=== PATIENT | male | born 1930 | race Caucasian/White ===

== ENCOUNTER 2017-08-20 15:40 | Inpatient (IN) | payer MEDICARE, MEDICAID ==
[~2017-08-20] VITALS: Ht 177.8 cm; Wt 83.9 kg
[2017-08-20 17:49] LABS: Hematocrit 26.5 % (41.0-53.0); Mean Corpuscular Hemoglobin 27.8 pg (28.0-32.0); Mean Corpuscular Hgb Conc. 30.1 g/dL (32.0-36.0); Mean Corpuscular Volume 92.4 fL (80.0-100.0); Mean Platelet Volume 9.3 fL (6.9-10.8); Platelet Count (auto) 272 10^3/uL (140-450); Red Cell Distribution Width 17.2 % (11.8-14.3)
[2017-08-20 17:53] LABS: Albumin 2.3 g/dL (3.4-5.0); BUN/Creatinine Ratio 26.7; Bilirubin, Total 0.8 mg/dL (0.2-1.0); Potassium 3.4 mmol/L (3.5-5.1); Total Protein 7.4 g/dL (6.4-8.2)
[2017-08-20 18:13] LABS: INR 1.05 (0.9-1.15); Partial Thromboplastin Time 43.5 sec (22.64-33.71); Prothrombin Time 11.4 sec (9.37-12.3)
[2017-08-20 18:20] LABS: Metamyelocytes % 0; Myelocytes % 0; Promyelocytes % 0; Reactive Lymphocytes 0
[2017-08-20 18:55] LABS: Hypersegmented Neutrophils Present
[2017-08-20 18:56] LABS: Platelet Estimate Adequate
[2017-08-20 18:57] LABS: Burr Cells FEW
[2017-08-20 18:58] LABS: Ovalocytes FEW
[2017-08-20 18:59] LABS: Tear Drop Cells FEW
[2017-08-20 19:00] LABS: Giant Platelets Few
[2017-08-20] MEDS ORDERED: ALBUTEROL SULF 2.5 MG/0.5ML(0.5%) NEB SOLN HHN ONE (19:00)
[2017-08-20] MEDS ORDERED: IPRATROPIUM BROM 0.5 MG/2.5ML INH SOL HHN ONE (19:00)
[2017-08-20] MEDS ORDERED: methylPREDNISolone SOD SUCC 125 MG/2 ML VL IV ONE (19:00)
[2017-08-20 21:08] LABS: Allen Test Yes; Base Excess -11.7 mmol/L (-2.0-2.0); Blood MetHb 0.3 % (0.0-1.5); HCO3 12.2 mmol/L (22-26.0); MODE NASAL CANNULA; O2Hb 86.7 % (94.0-97.0); PCO2 22.1 mmHg (35.0-45.0); PCO2(T) 22.1 mmHg (35.0-45.0); PO2 57.3 mmHg (80.0-100.0); PO2(T) 57.3 mmHg (80.0-100.0); Sample Type Arterial; pH 7.361 (7.350-7.450)
[2017-08-20] MEDS ORDERED: SODIUM CHLORIDE 0.9% 500 ML IV ONE (21:30)
[2017-08-21] VITALS (10 sets, daily range): BP systolic 102–116; BP diastolic 60–92
[2017-08-21] MEDS ORDERED: MORPHINE SULF INJ 2 MG/ML SYRINGE 1ML IV PRN (00:15)
[2017-08-21] MEDS ORDERED: NITROGLYCERIN 0.4 MG SL TAB SL PRN (00:15)
[2017-08-21] MEDS ORDERED: POTASSIUM CHL 10% (20 MEQ/15ML) 15ml ORAL SOLN PO ONE (00:30)
[2017-08-21] MEDS ORDERED: ONDANSETRON HCL 4 MG/2 ML VIAL IV PRN (00:45)
[2017-08-21 02:12] LABS: Urine Bilirubin Negative (Negative); Urine Blood 2+ /uL (Negative); Urine Color Yellow (Yellow); Urine Glucose Normal (Normal); Urine Hyaline Cast FEW /lpf (0 - 2); Urine Ketone Negative (Negative); Urine Nitrite Negative (Negative); Urine RBC 189 /hpf (0 - 3); Urine Squamous Epithelial Cell FEW /hpf (<5); Urine Urobilinogen Normal (Negative); Urine WBC Clumps PRESENT /hpf (None Seen); Urine pH 5.5 (5.0-8.0)
[2017-08-21] MEDS: cefTRIAXone 1GM/10ml IVPUSH 10 ML IV SCH (05:15)
[2017-08-21 05:41] LABS: Hemoglobin 7.4 g/dL (13.5-17.5); Mean Platelet Volume 9.3 fL (6.9-10.8); Red Cell Distribution Width 17.1 % (11.8-14.3)
[2017-08-21 05:45] LABS: Mean Corpuscular Hemoglobin 28.1 pg (28.0-32.0); Mean Corpuscular Hgb Conc. 29.7 g/dL (32.0-36.0); Mean Corpuscular Volume 94.5 fL (80.0-100.0); Platelet Count (auto) 246 10^3/uL (140-450)
[2017-08-21 05:52] LABS: White Blood Cell 277.3 10^3/uL (4.4-10.8)
[2017-08-21 05:53] LABS: Metamyelocytes % 0; Myelocytes % 0; Promyelocytes % 0; Reactive Lymphocytes 0
[2017-08-21 06:05] LABS: Calcium 7.9 mg/dL (8.5-10.1); Potassium 4.1 mmol/L (3.5-5.1)
[2017-08-21 06:08] LABS: Bilirubin, Total 0.6 mg/dL (0.2-1.0); Total Protein 6.7 g/dL (6.4-8.2)
[2017-08-21 06:10] LABS: B-Type Natriuretic Peptide 52.33 pg/mL (0-100)
[2017-08-21 06:21] LABS: Temperature: 22.2 C (20.0-25.0)
[2017-08-21 08:58] LABS: Temperature: 22.8 C (20.0-25.0)
[2017-08-21 13:32] LABS: Platelet Estimate Adequate
[2017-08-21 13:34] LABS: Burr Cells FEW
[2017-08-21 13:37] LABS: Ovalocytes FEW
[2017-08-21 13:38] LABS: Tear Drop Cells FEW
[2017-08-21] MEDS ORDERED: ALLOPURINOL 100 MG TAB PO ONE (14:00)
[2017-08-21] MEDS: SODIUM BICARBONATE 50ML VIAL 50 ML in D5W/SOD CHL 0.45%/KCL 20MEQ 1,000 ML IV SCH ×2 (17:05→20:36)
[2017-08-21] MEDS: LEVOTHYROXINE SODIUM 25 MCG TAB PO SCH (17:05)
[2017-08-22] MEDS: SODIUM BICARBONATE 50ML VIAL 50 ML in D5W/SOD CHL 0.45%/KCL 20MEQ 1,000 ML IV SCH ×3 (04:47→23:00)
[2017-08-22] MEDS: cefTRIAXone 1GM/10ml IVPUSH 10 ML IV SCH (04:59)
[2017-08-22] MEDS: LEVOTHYROXINE SODIUM 25 MCG TAB PO SCH (05:00)
[2017-08-22 05:14] VITALS: BP 104/63
[2017-08-22 06:31] LABS: Phosphorus 5.9 mg/dL (2.5-4.90); Uric Acid 7.8 mg/dL (3.5-7.2)
[2017-08-22 06:56] LABS: Calcium 8.1 mg/dL (8.5-10.1); Potassium 3.5 mmol/L (3.5-5.1)
[2017-08-22 06:59] LABS: BUN/Creatinine Ratio 32.7; Total Protein 6.7 g/dL (6.4-8.2)
[2017-08-22 07:06] LABS: Bilirubin, Total 0.5 mg/dL (0.2-1.0)
[2017-08-22 08:46] LABS: Hematocrit 28.9 % (41.0-53.0); Hemoglobin 8.4 g/dL (13.5-17.5); Mean Corpuscular Hemoglobin 27.1 pg (28.0-32.0); Mean Corpuscular Volume 93.4 fL (80.0-100.0); Mean Platelet Volume 9.4 fL (6.9-10.8); Platelet Count (auto) 272 10^3/uL (140-450); Red Cell Distribution Width 17.1 % (11.8-14.3)
[2017-08-22 08:48] LABS: Metamyelocytes % 0; Myelocytes % 0; Promyelocytes % 0; Reactive Lymphocytes 0; White Blood Cell 298.6 10^3/uL (4.4-10.8)
[2017-08-22 09:00] VITALS: BP 105/57
[2017-08-22 09:36] LABS: Anisocytosis Slight; Platelet Estimate Adequate
[2017-08-22 09:37] LABS: Burr Cells FEW
[2017-08-22] MEDS ORDERED: IMBRUVICA 140 MG PO SCH ×2 (10:00)
[2017-08-22] MEDS: ALLOPURINOL 100 MG TAB PO SCH (10:22)
[2017-08-22] MEDS: LINEZOLID 600MG/300ML 300 ML IV SCH ×2 (10:22→22:02)
[2017-08-22] MEDS: CALCIUM ACETATE 667 MG CAP PO SCH ×2 (12:46→17:28)
[2017-08-22] MEDS: PIPERACILLIN-TAZOB 2.25GM 50 ML IV SCH ×2 (12:46→17:28)
[2017-08-22 13:00] VITALS: BP 114/55
[2017-08-22] MEDS: methylPREDNISolone SOD SUCC 125 MG/2 ML VL IV SCH ×2 (14:19→22:02)
[2017-08-22] MEDS: IBRUTINIB 140 MG PO SCH (16:36)
[2017-08-22 17:00] VITALS: BP 107/62
[2017-08-22 22:00] VITALS: BP 123/75
[2017-08-23] MEDS ORDERED: FERROUS SULFATE 325 MG TAB PO ONE (01:30)
[2017-08-23] MEDS ORDERED: DOCUSATE SOD 100 MG CAP PO PRN (01:30)
[2017-08-23] MEDS ORDERED: B-COTAB10 OR (02:01)
[2017-08-23] MEDS ORDERED: LEVO175T33 PO (02:01)
[2017-08-23] MEDS ORDERED: DOCU-94 PO (02:01)
[2017-08-23] MEDS ORDERED: CALC500C3 PO (02:01)
[2017-08-23] MEDS ORDERED: LOSA100T27 PO (02:01)
[2017-08-23] MEDS ORDERED: LABE100T PO (02:01)
[2017-08-23] MEDS ORDERED: PANT40TA2 PO (02:01)
[2017-08-23] MEDS ORDERED: SIMV10TA73 PO (02:01)
[2017-08-23] MEDS ORDERED: ALLO100T PO (02:01)
[2017-08-23] MEDS ORDERED: FURO20TA PO (02:01)
[2017-08-23] MEDS ORDERED: FOLI1TAB6 PO (02:01)
[2017-08-23] MEDS ORDERED: CYA100I IM (02:01)
[2017-08-23] MEDS ORDERED: GLIP2.5T28 PO (02:01)
[2017-08-23] MEDS ORDERED: FERR325T PO (02:01)
[2017-08-23 05:43] LABS: Hemoglobin 8.9 g/dL (13.5-17.5)
[2017-08-23 05:48] LABS: Hematocrit 27.9 % (41.0-53.0); Mean Corpuscular Hemoglobin 29.3 pg (28.0-32.0); Mean Corpuscular Volume 91.5 fL (80.0-100.0); Mean Platelet Volume 9.2 fL (6.9-10.8); Platelet Count (auto) 272 10^3/uL (140-450); Red Cell Distribution Width 16.6 % (11.8-14.3)
[2017-08-23 06:00] VITALS: BP 107/69
[2017-08-23 06:04] LABS: Metamyelocytes % 0; Myelocytes % 0; Promyelocytes % 0; Reactive Lymphocytes 0
[2017-08-23 06:07] LABS: Albumin 1.9 g/dL (3.4-5.0); Potassium 3.8 mmol/L (3.5-5.1)
[2017-08-23] MEDS: LEVOTHYROXINE SODIUM 50 MCG TAB PO SCH (06:09)
[2017-08-23] MEDS: methylPREDNISolone SOD SUCC 125 MG/2 ML VL IV SCH ×3 (06:09→21:29)
[2017-08-23] MEDS: PIPERACILLIN-TAZOB 2.25GM 50 ML IV SCH ×5 (06:09→23:36)
[2017-08-23 06:12] LABS: BUN/Creatinine Ratio 34.7; Bilirubin, Total 0.4 mg/dL (0.2-1.0); Total Protein 6.8 g/dL (6.4-8.2)
[2017-08-23 06:14] LABS: Uric Acid 6.9 mg/dL (3.5-7.2)
[2017-08-23 06:41] LABS: Platelet Estimate Adequate
[2017-08-23 06:42] LABS: Anisocytosis Slight; Tear Drop Cells FEW
[2017-08-23 09:00] VITALS: BP 112/65
[2017-08-23] MEDS: PANTOPRAZOLE 40 MG TAB PO SCH (09:45)
[2017-08-23] MEDS: IBRUTINIB 140 MG PO SCH (09:45)
[2017-08-23] MEDS: LINEZOLID 600MG/300ML 300 ML IV SCH ×2 (09:45→21:29)
[2017-08-23] MEDS: ALLOPURINOL 100 MG TAB PO SCH (09:45)
[2017-08-23] MEDS: SODIUM BICARBONATE 50ML VIAL 50 ML in D5W/SOD CHL 0.45%/KCL 20MEQ 1,000 ML IV SCH ×2 (09:53→16:32)
[2017-08-23] MEDS ORDERED: CALCIUM CARB 500 MG CHEW TAB PO SCH (10:00)
[2017-08-23] MEDS ORDERED: FOLIC ACID 1 MG TAB PO SCH (10:00)
[2017-08-23] MEDS ORDERED: ALLOPURINOL 100 MG TAB PO SCH (10:00)
[2017-08-23] MEDS ORDERED: CYANOCOBALAMIN 500 MCG TAB PO SCH (10:00)
[2017-08-23] MEDS ORDERED: B-COMPLEX W/ C & FOLIC ACID(NEPHROVITE TAB) PO SCH (10:00)
[2017-08-23] MEDS ORDERED: DEXTROSE (50%) 50ML SYRG IV PRN (11:00)
[2017-08-23] MEDS ORDERED: glipiZIDE 5 MG TAB PO ONE (11:30)
[2017-08-23] MEDS: ACCU-CHEK COMFORT CURVE STRIP VI SCH ×3 (11:30→21:29)
[2017-08-23] MEDS: guaiFENesin-DEXTROMETHORPHAN 5ML SYR PO PRN ×2 (12:07→16:04)
[2017-08-23] MEDS: InsuLIN REG 1unit/0.01ml Soln (100units/ml) SC SCH ×3 (12:24→21:36)
[2017-08-23 13:00] VITALS: BP 108/73
[2017-08-23 17:00] VITALS: BP 105/61
[2017-08-23] MEDS: Boost Glucose Control 8 Ounces PO SCH (18:00)
[2017-08-23 21:39] VITALS: BP 90/58
[2017-08-24] MEDS: SODIUM BICARBONATE 50ML VIAL 50 ML in D5W/SOD CHL 0.45%/KCL 20MEQ 1,000 ML IV SCH ×4 (01:15→22:55)
[2017-08-24 05:05] VITALS: BP 110/66
[2017-08-24 05:52] LABS: Platelet Count (auto) 282 10^3/uL (140-450)
[2017-08-24 05:57] LABS: Hematocrit 28.7 % (41.0-53.0); Mean Corpuscular Hemoglobin 28.4 pg (28.0-32.0); Mean Corpuscular Hgb Conc. 31.3 g/dL (32.0-36.0); Mean Corpuscular Volume 90.9 fL (80.0-100.0); Red Cell Distribution Width 16.8 % (11.8-14.3)
[2017-08-24 06:05] LABS: Albumin 1.9 g/dL (3.4-5.0); Calcium 8.2 mg/dL (8.5-10.1); Potassium 3.7 mmol/L (3.5-5.1)
[2017-08-24 06:09] LABS: Bilirubin, Total 0.5 mg/dL (0.2-1.0); Total Protein 6.2 g/dL (6.4-8.2)
[2017-08-24 06:11] LABS: White Blood Cell 204.8 10^3/uL (4.4-10.8)
[2017-08-24 06:12] LABS: Metamyelocytes % 0; Myelocytes % 0; Promyelocytes % 0; Reactive Lymphocytes 0
[2017-08-24 06:14] LABS: BUN/Creatinine Ratio 39.4
[2017-08-24] MEDS: methylPREDNISolone SOD SUCC 125 MG/2 ML VL IV SCH ×3 (06:16→21:24)
[2017-08-24] MEDS: PIPERACILLIN-TAZOB 2.25GM 50 ML IV SCH (06:16)
[2017-08-24] MEDS: ACCU-CHEK COMFORT CURVE STRIP VI SCH ×4 (06:17→21:24)
[2017-08-24] MEDS: LEVOTHYROXINE SODIUM 50 MCG TAB PO SCH (06:17)
[2017-08-24 06:23] LABS: Anisocytosis Slight; Platelet Estimate Adequate; Tear Drop Cells FEW
[2017-08-24] MEDS: InsuLIN REG 1unit/0.01ml Soln (100units/ml) SC SCH ×4 (06:33→21:37)
[2017-08-24] MEDS ORDERED: glipiZIDE 5 MG TAB PO SCH (08:00)
[2017-08-24 08:54] VITALS: BP 115/77
[2017-08-24] MEDS: ALLOPURINOL 100 MG TAB PO SCH (09:28)
[2017-08-24] MEDS: PANTOPRAZOLE 40 MG TAB PO SCH (09:28)
[2017-08-24] MEDS: LINEZOLID 600MG/300ML 300 ML IV SCH (09:28)
[2017-08-24] MEDS: Boost Glucose Control 8 Ounces PO SCH ×2 (09:28→19:00)
[2017-08-24] MEDS: IBRUTINIB 140 MG PO SCH (09:29)
[2017-08-24] MEDS ORDERED: ASPirin-EC 81 mg tab PO ONE (10:15)
[2017-08-24] MEDS ORDERED: ENOXAPARIN SOD 30 MG/0.3 ML SYRINGE SC ONE (10:15)
[2017-08-24] MEDS: cefTRIAXone 1GM/10ml IVPUSH 10 ML IV SCH (10:33)
[2017-08-24 13:50] VITALS: BP 107/63
[2017-08-24 17:09] VITALS: BP 105/71
[2017-08-24] MEDS: INSULIN DETEMIR(LEVEMIR) 1unit/0.01ml Soln (100units/ml) SC SCH (21:37)
[2017-08-24 22:00] VITALS: BP 109/69
[2017-08-25 05:00] VITALS: BP 116/72
[2017-08-25 06:00] LABS: Hematocrit 27.7 % (41.0-53.0); Mean Corpuscular Hemoglobin 29.4 pg (28.0-32.0); Mean Corpuscular Hgb Conc. 32.5 g/dL (32.0-36.0); Mean Corpuscular Volume 90.7 fL (80.0-100.0); Platelet Count (auto) 271 10^3/uL (140-450); Red Cell Distribution Width 16.6 % (11.8-14.3)
[2017-08-25 06:11] LABS: White Blood Cell 146.2 10^3/uL (4.4-10.8)
[2017-08-25 06:12] LABS: Metamyelocytes % 0; Myelocytes % 0; Promyelocytes % 0; Reactive Lymphocytes 0
[2017-08-25 06:17] LABS: BUN/Creatinine Ratio 43.4; Calcium 7.9 mg/dL (8.5-10.1)
[2017-08-25] MEDS: methylPREDNISolone SOD SUCC 125 MG/2 ML VL IV SCH ×3 (06:25→21:41)
[2017-08-25] MEDS: LEVOTHYROXINE SODIUM 50 MCG TAB PO SCH (06:25)
[2017-08-25] MEDS: ACCU-CHEK COMFORT CURVE STRIP VI SCH ×4 (06:26→21:42)
[2017-08-25] MEDS: InsuLIN REG 1unit/0.01ml Soln (100units/ml) SC SCH ×4 (06:26→21:41)
[2017-08-25 06:50] LABS: Ovalocytes FEW; Platelet Estimate Adequate
[2017-08-25 07:50] VITALS: BP 134/73
[2017-08-25] MEDS: cefTRIAXone 1GM/10ml IVPUSH 10 ML IV SCH (10:05)
[2017-08-25] MEDS: Boost Glucose Control 8 Ounces PO SCH ×2 (10:05→17:01)
[2017-08-25] MEDS: glipiZIDE 5 MG TAB PO SCH (10:05)
[2017-08-25] MEDS: IBRUTINIB 140 MG PO SCH (10:06)
[2017-08-25] MEDS: ASPirin-EC 81 mg tab PO SCH (10:06)
[2017-08-25] MEDS: PANTOPRAZOLE 40 MG TAB PO SCH (10:06)
[2017-08-25] MEDS: ALLOPURINOL 100 MG TAB PO SCH (10:07)
[2017-08-25] MEDS: ENOXAPARIN SOD 30 MG/0.3 ML SYRINGE SC SCH (10:08)
[2017-08-25] MEDS: SODIUM BICARBONATE 50ML VIAL 50 ML in D5W/SOD CHL 0.45%/KCL 20MEQ 1,000 ML IV SCH (11:01)
[2017-08-25 12:00] VITALS: BP 117/76
[2017-08-25] MEDS: guaiFENesin-DEXTROMETHORPHAN 5ML SYR PO PRN ×2 (16:08→20:32)
[2017-08-25 17:00] VITALS: BP 130/80
[2017-08-25] MEDS: SODIUM CHLORIDE 0.9% 1,000 ML IV SCH (18:39)
[2017-08-25 21:30] VITALS: BP 120/72
[2017-08-25] MEDS: INSULIN DETEMIR(LEVEMIR) 1unit/0.01ml Soln (100units/ml) SC SCH (21:42)
[2017-08-26 05:00] VITALS: BP 120/69
[2017-08-26 06:00] LABS: Hemoglobin 9.1 g/dL (13.5-17.5); Mean Corpuscular Hgb Conc. 30.5 g/dL (32.0-36.0); Mean Platelet Volume 9.1 fL (6.9-10.8)
[2017-08-26 06:05] LABS: Hematocrit 29.7 % (41.0-53.0); Mean Corpuscular Hemoglobin 28.3 pg (28.0-32.0); Mean Corpuscular Volume 92.8 fL (80.0-100.0); Platelet Count (auto) 263 10^3/uL (140-450); Red Cell Distribution Width 16.5 % (11.8-14.3)
[2017-08-26] MEDS: InsuLIN REG 1unit/0.01ml Soln (100units/ml) SC SCH ×4 (06:14→21:48)
[2017-08-26] MEDS: ACCU-CHEK COMFORT CURVE STRIP VI SCH ×4 (06:14→21:49)
[2017-08-26 06:18] LABS: White Blood Cell 121.4 10^3/uL (4.4-10.8)
[2017-08-26 06:19] LABS: Albumin 1.9 g/dL (3.4-5.0); BUN/Creatinine Ratio 43.6; Bilirubin, Total 0.5 mg/dL (0.2-1.0); Calcium 8.2 mg/dL (8.5-10.1); Metamyelocytes % 0; Myelocytes % 0; Promyelocytes % 0; Reactive Lymphocytes 0; Total Protein 5.8 g/dL (6.4-8.2)
[2017-08-26] MEDS: LEVOTHYROXINE SODIUM 50 MCG TAB PO SCH (06:35)
[2017-08-26] MEDS: methylPREDNISolone SOD SUCC 125 MG/2 ML VL IV SCH ×3 (06:36→21:48)
[2017-08-26 07:23] LABS: Anisocytosis Slight; Platelet Estimate Adequate
[2017-08-26 08:00] VITALS: BP 131/78
[2017-08-26] MEDS: glipiZIDE 5 MG TAB PO SCH (09:02)
[2017-08-26] MEDS: cefTRIAXone 1GM/10ml IVPUSH 10 ML IV SCH (09:02)
[2017-08-26] MEDS: Boost Glucose Control 8 Ounces PO SCH ×2 (09:08→17:35)
[2017-08-26] MEDS ORDERED: LACTULOSE 20Gm/30ML SOLN PO ONE (09:45)
[2017-08-26] MEDS: PANTOPRAZOLE 40 MG TAB PO SCH (10:04)
[2017-08-26] MEDS: ASPirin-EC 81 mg tab PO SCH (10:04)
[2017-08-26] MEDS: ALLOPURINOL 100 MG TAB PO SCH (10:04)
[2017-08-26] MEDS: IBRUTINIB 140 MG PO SCH (10:04)
[2017-08-26] MEDS: ENOXAPARIN SOD 30 MG/0.3 ML SYRINGE SC SCH (10:05)
[2017-08-26 12:00] VITALS: BP 124/72
[2017-08-26] MEDS: SODIUM CHLORIDE 0.9% 1,000 ML IV SCH (12:16)
[2017-08-26 17:02] VITALS: BP 132/71
[2017-08-26] MEDS: LACTULOSE 20Gm/30ML SOLN PO SCH (21:48)
[2017-08-26] MEDS: INSULIN DETEMIR(LEVEMIR) 1unit/0.01ml Soln (100units/ml) SC SCH (21:49)
[2017-08-26 22:15] VITALS: BP 131/75
[2017-08-27] MEDS: SODIUM CHLORIDE 0.9% 1,000 ML IV SCH (03:31)
[2017-08-27 05:00] VITALS: BP 130/73
[2017-08-27 06:23] LABS: Hematocrit 28.5 % (41.0-53.0); Hemoglobin 8.8 g/dL (13.5-17.5); Mean Corpuscular Hemoglobin 28.7 pg (28.0-32.0); Mean Corpuscular Volume 92.5 fL (80.0-100.0); Platelet Count (auto) 238 10^3/uL (140-450); Red Cell Distribution Width 16.5 % (11.8-14.3)
[2017-08-27 06:27] LABS: White Blood Cell 102.2 10^3/uL (4.4-10.8)
[2017-08-27 06:28] LABS: Metamyelocytes % 0; Myelocytes % 0; Promyelocytes % 0; Reactive Lymphocytes 0
[2017-08-27] MEDS: LEVOTHYROXINE SODIUM 50 MCG TAB PO SCH (06:30)
[2017-08-27] MEDS: InsuLIN REG 1unit/0.01ml Soln (100units/ml) SC SCH ×2 (06:30→13:40)
[2017-08-27] MEDS: methylPREDNISolone SOD SUCC 125 MG/2 ML VL IV SCH (06:34)
[2017-08-27] MEDS: ACCU-CHEK COMFORT CURVE STRIP VI SCH ×2 (06:35→13:39)
[2017-08-27 06:57] LABS: BUN/Creatinine Ratio 46.3; Calcium 8.4 mg/dL (8.5-10.1)
[2017-08-27 06:58] LABS: Anisocytosis Slight; Platelet Estimate Adequate
[2017-08-27] MEDS: glipiZIDE 5 MG TAB PO SCH (08:00)
[2017-08-27 08:45] VITALS: BP 129/74
[2017-08-27 09:00] VITALS: BP 131/71
[2017-08-27] MEDS: Boost Glucose Control 8 Ounces PO SCH (09:08)
[2017-08-27] MEDS: cefTRIAXone 1GM/10ml IVPUSH 10 ML IV SCH (09:50)
[2017-08-27] MEDS: ASPirin-EC 81 mg tab PO SCH (09:51)
[2017-08-27] MEDS: LACTULOSE 20Gm/30ML SOLN PO SCH (09:51)
[2017-08-27] MEDS: IBRUTINIB 140 MG PO SCH (09:51)
[2017-08-27] MEDS: ALLOPURINOL 100 MG TAB PO SCH (09:52)
[2017-08-27] MEDS: ENOXAPARIN SOD 30 MG/0.3 ML SYRINGE SC SCH (09:52)
[2017-08-27] MEDS: PANTOPRAZOLE 40 MG TAB PO SCH (09:52)
[2017-08-27] MEDS ORDERED: GLIP-115 PO (10:00)
[2017-08-27] MEDS ORDERED: ASP81EC PO (10:00)
[2017-08-27] MEDS ORDERED: PANT40T PO (10:00)
[2017-08-27] MEDS ORDERED: LACT10SO3 PO (10:00)
[2017-08-27] MEDS ORDERED: ALL100T PO (10:00)
[2017-08-27] MEDS ORDERED: APIX2.5T OR (10:48)
[2017-08-27] MEDS ORDERED: APIXABAN 2.5 MG TAB PO SCH (11:00)
[2017-08-27 13:00] VITALS: BP 131/71
[2017-08-27] MEDS ORDERED: METOPROLOL TARTRATE 25 MG TAB PO ONE (13:00)
[2017-08-27] MEDS ORDERED: METOPROLOL TARTRATE 25 MG TAB PO SCH (22:00)
== END 2017-08-27 16:00 | disposition home or self-care (01) | DRG 840 ==
LOC: EDBD 15:40 → ER 15:53 → TELE 15:54 → TELE-CENTR 08-21 03:15
PROVIDERS: ADMIT Nurse Practitioner Family; ATTEND Internal Medicine
PROC: 30233N1 Transfusion of Nonautologous Red Blood Cells into Peripheral Vein, Percutaneous Approach (ICD-10-PCS; principal; 2017-08-20)
DX: C91.10 Chronic lymphocytic leukemia of B-cell type not having achieved remission (principal); G93.41 Metabolic encephalopathy; N17.0 Acute kidney failure with tubular necrosis; E43 Unspecified severe protein-calorie malnutrition; I47.2 Ventricular tachycardia; J18.9 Pneumonia, unspecified organism; N18.4 Chronic kidney disease, stage 4 (severe); N39.0 Urinary tract infection, site not specified; E87.1 Hypo-osmolality and hyponatremia; I13.0 Hypertensive heart and chronic kidney disease with heart failure and stage 1 through stage 4 chronic kidney disease, or unspecified chronic kidney disease; J44.0 Chronic obstructive pulmonary disease with (acute) lower respiratory infection; E87.2 Acidosis; D69.6 Thrombocytopenia, unspecified; E11.22 Type 2 diabetes mellitus with diabetic chronic kidney disease; C95.90 Leukemia, unspecified not having achieved remission; G62.9 Polyneuropathy, unspecified; E86.0 Dehydration; E03.9 Hypothyroidism, unspecified; Z68.26 Body mass index [BMI] 26.0-26.9, adult; E78.00 Pure hypercholesterolemia, unspecified; I48.91 Unspecified atrial fibrillation; I50.9 Heart failure, unspecified; I71.4 Abdominal aortic aneurysm, without rupture; I72.3 Aneurysm of iliac artery; K21.9 Gastro-esophageal reflux disease without esophagitis; N40.0 Benign prostatic hyperplasia without lower urinary tract symptoms; Z51.5 Encounter for palliative care; E83.39 Other disorders of phosphorus metabolism; D63.0 Anemia in neoplastic disease; I71.2 Thoracic aortic aneurysm, without rupture; Z66 Do not resuscitate; Z79.01 Long term (current) use of anticoagulants; Z85.46 Personal history of malignant neoplasm of prostate; Z86.73 Personal history of transient ischemic attack (TIA), and cerebral infarction without residual deficits; Z87.891 Personal history of nicotine dependence; Z92.3 Personal history of irradiation
CPT/HCPCS: 36415; 36600; 70450; 71010; 71250; 74176; 76775; 80048; 80053; 81001; 82570; 82746; 82805; 82962; 83010; 83036; 83605; 83615; 83735; 83880; 84100; 84156; 84300; 84443; 84550; 85007; 85027; 85045; 85060; 85610; 85730; 86850; 86880; 86900; 86901; 86920; 87040; 87045; 87081; 87086; 87899; 93005; 93306; 94644; 96361; 96374; 99291; J1815; J2543

== ENCOUNTER 2017-09-25 23:48 | Inpatient (IN) | payer MEDICARE, MEDICAID ==
[~2017-09-25] VITALS: Ht 170.2 cm; Wt 74.9 kg
[2017-09-25 23:30] VITALS: BP 100/55
[~2017-09-25 23:48] MED LIST: ALL100T PO; APIX2.5T OR; ASP81EC PO; B-COTAB10 OR; CALC500C3 PO; CYA100I IM; DOCU-94 PO; FERR-20 PO; FOLI1TAB6 PO; GLIP-115 PO; LABE100T PO; LACT10SO3 PO; LEVO175T33 PO; PANT40T PO; SIMV10TA73 PO
[2017-09-26] VITALS (8 sets, daily range): BP systolic 97–109; BP diastolic 55–67
[2017-09-26] MEDS ORDERED: MORPHINE SULF INJ 2 MG/ML SYRINGE 1ML IV PRN (00:15)
[2017-09-26] MEDS ORDERED: NITROGLYCERIN 0.4 MG SL TAB SL PRN (00:15)
[2017-09-26 02:03] LABS: Platelet Count (auto) 324 10^3/uL (140-450); Red Blood Cells 2.65 10^6/uL (4.5-5.90)
[2017-09-26 02:04] LABS: Hematocrit 22.8 % (41.0-53.0); Mean Corpuscular Hemoglobin 26.4 pg (28.0-32.0); Mean Corpuscular Hgb Conc. 30.7 g/dL (32.0-36.0); Mean Corpuscular Volume 86.1 fL (80.0-100.0)
[2017-09-26 02:10] LABS: Red Cell Distribution Width 21.2 % (11.8-14.3)
[2017-09-26 02:11] LABS: White Blood Cell 45.5 10^3/uL (4.4-10.8)
[2017-09-26 02:12] LABS: Basophils % (manual) 0 (0.0-2.0); Blast Cells 0; Eosinophils % (manual) 0 (0-7); Metamyelocytes % 0; Myelocytes % 0; Promyelocytes % 0; Reactive Lymphocytes 0
[2017-09-26 02:23] LABS: Albumin 1.5 g/dL (3.4-5.0); BUN/Creatinine Ratio 26.6; Bilirubin, Total 0.7 mg/dL (0.2-1.0); Calcium 7.8 mg/dL (8.5-10.1); Total Protein 5.9 g/dL (6.4-8.2)
[2017-09-26 02:25] LABS: Potassium 2.8 mmol/L (3.5-5.1)
[2017-09-26 02:49] LABS: Band Neutrophils % (manual) 1; Lymphocytes % (manual) 72 (10.0-50.0); Monocytes % (manual) 4 (0-12)
[2017-09-26] MEDS ORDERED: POTASSIUM CHL 20 Meq TABLET PO ONE ×2 (03:15→03:29)
[2017-09-26] MEDS ORDERED: METO25TA62 PO (04:31)
[2017-09-26] MEDS ORDERED: ASCO-22 PO (04:31)
[2017-09-26] MEDS ORDERED: FURO40TA PO (04:31)
[2017-09-26] MEDS ORDERED: METO5TAB56 PO (04:31)
[2017-09-26] MEDS: glipiZIDE 5 MG TAB PO SCH (06:00)
[2017-09-26] MEDS ORDERED: FERROUS SULFATE 325 MG TAB PO SCH (08:00)
[2017-09-26] MEDS: FOLIC ACID 1 MG TAB PO SCH (08:44)
[2017-09-26] MEDS ORDERED: ALLOPURINOL 100 MG TAB PO SCH (10:00)
[2017-09-26] MEDS ORDERED: LABETALOL HCL 200 MG TAB PO SCH (10:00)
[2017-09-26] MEDS ORDERED: PANTOPRAZOLE 40 MG TAB PO SCH (10:00)
[2017-09-26] MEDS ORDERED: DEXTROSE (50%) 50ML SYRG IV PRN (10:30)
[2017-09-26] MEDS ORDERED: LACTULOSE 20Gm/30ML SOLN PO PRN (11:15)
[2017-09-26] MEDS: FERROUS SULFATE 325 MG TAB PO SCH (11:15)
[2017-09-26] MEDS: LABETALOL HCL 200 MG TAB PO SCH ×2 (11:15→21:35)
[2017-09-26] MEDS: InsuLIN REG 1unit/0.01ml Soln (100units/ml) SC SCH ×3 (11:30→21:26)
[2017-09-26] MEDS: ACCU-CHEK COMFORT CURVE STRIP VI SCH ×3 (11:30→21:27)
[2017-09-26 14:14] LABS: Hematocrit 28.4 % (41.0-53.0)
[2017-09-26 14:19] LABS: Hemoglobin 8.9 g/dL (13.5-17.5)
[2017-09-26 16:41] LABS: Urine Bacteria MOD /hpf (None Seen); Urine Blood 1+ /uL (Negative); Urine Hyaline Cast FEW /lpf (0 - 2); Urine Specific Gravity 1.015 (1.001-1.035); Urine WBC 1634 /hpf (0 - 3); Urine WBC Clumps PRESENT /hpf (None Seen)
[2017-09-26] MEDS: ATORVASTATIN 20 MG TAB PO SCH (21:35)
[2017-09-26] MEDS: ASCORBIC ACID 500 MG TAB PO SCH (21:36)
[2017-09-26] MEDS: FUROSEMIDE 40 MG TAB PO SCH (21:42)
[2017-09-27 05:00] VITALS: BP 102/66
[2017-09-27] MEDS: LEVOTHYROXINE SODIUM 100 MCG TAB PO SCH (06:07)
[2017-09-27] MEDS: glipiZIDE 5 MG TAB PO SCH (06:07)
[2017-09-27] MEDS: LEVOTHYROXINE SODIUM 50 MCG TAB PO SCH (06:08)
[2017-09-27] MEDS: InsuLIN REG 1unit/0.01ml Soln (100units/ml) SC SCH ×4 (06:09→22:17)
[2017-09-27] MEDS: ACCU-CHEK COMFORT CURVE STRIP VI SCH ×4 (06:09→22:17)
[2017-09-27 09:00] VITALS: BP 102/71
[2017-09-27] MEDS: ASCORBIC ACID 500 MG TAB PO SCH ×2 (09:41→21:51)
[2017-09-27] MEDS: CYANOCOBALAMIN (B-12) 1000 MCG/1 ML VIAL IM SCH (09:41)
[2017-09-27] MEDS: FOLIC ACID 1 MG TAB PO SCH (09:41)
[2017-09-27] MEDS: METOLAZONE 5 MG TAB PO SCH (09:42)
[2017-09-27] MEDS: FERROUS SULFATE 325 MG TAB PO SCH (09:42)
[2017-09-27] MEDS: PANTOPRAZOLE 40 MG TAB PO SCH (09:43)
[2017-09-27] MEDS: METOPROLOL SUCCINATE XL 50 MG TAB PO SCH ×2 (09:43→22:00)
[2017-09-27] MEDS: LABETALOL HCL 200 MG TAB PO SCH ×2 (09:45→22:00)
[2017-09-27] MEDS: FUROSEMIDE 40 MG TAB PO SCH ×2 (09:46→21:52)
[2017-09-27] MEDS ORDERED: FOLIC ACID 1 MG TAB PO SCH (10:00)
[2017-09-27] MEDS ORDERED: ALLOPURINOL 100 MG TAB PO SCH (10:00)
[2017-09-27] MEDS ORDERED: cefTRIAXone 1GM/10ml IVPUSH 10 ML IV ONE (10:15)
[2017-09-27 10:42] LABS: Hematocrit 34.6 % (41.0-53.0); Hemoglobin 10.9 g/dL (13.5-17.5); Mean Corpuscular Hemoglobin 27.4 pg (28.0-32.0); Mean Corpuscular Hgb Conc. 31.4 g/dL (32.0-36.0); Mean Corpuscular Volume 87.2 fL (80.0-100.0); Platelet Count (auto) 287 10^3/uL (140-450); Red Blood Cells 3.97 10^6/uL (4.5-5.90); Red Cell Distribution Width 19.3 % (11.8-14.3)
[2017-09-27 11:00] LABS: Albumin 1.8 g/dL (3.4-5.0); BUN/Creatinine Ratio 21.2; Bilirubin, Total 1.1 mg/dL (0.2-1.0); Calcium 8.4 mg/dL (8.5-10.1); Potassium 3.7 mmol/L (3.5-5.1); Total Protein 6.9 g/dL (6.4-8.2)
[2017-09-27 11:01] LABS: Band Neutrophils % (manual) 0; Basophils % (manual) 0 (0.0-2.0); Blast Cells 0; Eosinophils % (manual) 0 (0-7); Metamyelocytes % 0; Myelocytes % 0; Promyelocytes % 0; Reactive Lymphocytes 0
[2017-09-27 12:33] LABS: Lymphocytes % (manual) 79 (10.0-50.0); Monocytes % (manual) 2 (0-12)
[2017-09-27 13:00] VITALS: BP 100/59
[2017-09-27 17:00] VITALS: BP 101/59
[2017-09-27] MEDS: Boost Glucose Control 8 Ounces PO SCH (18:00)
[2017-09-27] MEDS ORDERED: Boost Glucose Control 8 Ounces PO SCH (18:00)
[2017-09-27] MEDS ORDERED: Boost Breeze 8 Ounces PO SCH (18:00)
[2017-09-27] MEDS: PRO-STAT 64 30ML PO SCH (18:00)
[2017-09-27 20:00] VITALS: BP 97/71
[2017-09-27] MEDS: ATORVASTATIN 20 MG TAB PO SCH (21:50)
[2017-09-27 22:00] VITALS: BP 100/74
[2017-09-27] MEDS ORDERED: ACETAMINOPHEN 325 MG TAB PO PRN (22:15)
[2017-09-28 05:00] VITALS: BP 96/59
[2017-09-28] MEDS: InsuLIN REG 1unit/0.01ml Soln (100units/ml) SC SCH ×3 (06:08→17:00)
[2017-09-28] MEDS: glipiZIDE 5 MG TAB PO SCH (06:10)
[2017-09-28] MEDS: ACCU-CHEK COMFORT CURVE STRIP VI SCH ×3 (06:10→18:17)
[2017-09-28] MEDS: LEVOTHYROXINE SODIUM 100 MCG TAB PO SCH (06:11)
[2017-09-28] MEDS: LEVOTHYROXINE SODIUM 50 MCG TAB PO SCH (06:11)
[2017-09-28 06:44] LABS: Hemoglobin 9.1 g/dL (13.5-17.5); Red Blood Cells 3.35 10^6/uL (4.5-5.90)
[2017-09-28 06:46] LABS: Hematocrit 29.2 % (41.0-53.0); Mean Corpuscular Hemoglobin 27.2 pg (28.0-32.0); Mean Corpuscular Hgb Conc. 31.3 g/dL (32.0-36.0); Platelet Count (auto) 284 10^3/uL (140-450); Red Cell Distribution Width 18.6 % (11.8-14.3)
[2017-09-28 06:53] LABS: Band Neutrophils % (manual) 0; Basophils % (manual) 0 (0.0-2.0); Blast Cells 0; Eosinophils % (manual) 0 (0-7); Metamyelocytes % 0; Myelocytes % 0; Promyelocytes % 0; Reactive Lymphocytes 0
[2017-09-28 07:05] LABS: Albumin 1.7 g/dL (3.4-5.0); BUN/Creatinine Ratio 22.7; Bilirubin, Total 0.9 mg/dL (0.2-1.0); Calcium 8.2 mg/dL (8.5-10.1); Total Protein 6.6 g/dL (6.4-8.2)
[2017-09-28 07:27] LABS: Lymphocytes % (manual) 58 (10.0-50.0); Monocytes % (manual) 2 (0-12)
[2017-09-28 09:00] VITALS: BP 87/64
[2017-09-28] MEDS ORDERED: cefTRIAXone 1GM/10ml IVPUSH 10 ML IV SCH (09:00)
[2017-09-28] MEDS: FERROUS SULFATE 325 MG TAB PO SCH (09:29)
[2017-09-28] MEDS: CYANOCOBALAMIN (B-12) 1000 MCG/1 ML VIAL IM SCH (09:29)
[2017-09-28] MEDS: PANTOPRAZOLE 40 MG TAB PO SCH (09:30)
[2017-09-28] MEDS: FOLIC ACID 1 MG TAB PO SCH (09:30)
[2017-09-28] MEDS: ASCORBIC ACID 500 MG TAB PO SCH (09:31)
[2017-09-28] MEDS: Boost Glucose Control 8 Ounces PO SCH ×3 (09:32→18:17)
[2017-09-28] MEDS: PRO-STAT 64 30ML PO SCH ×2 (09:32→18:17)
[2017-09-28] MEDS: FUROSEMIDE 40 MG TAB PO SCH (10:00)
[2017-09-28] MEDS: METOPROLOL SUCCINATE XL 50 MG TAB PO SCH (10:00)
[2017-09-28] MEDS: LABETALOL HCL 200 MG TAB PO SCH (10:00)
[2017-09-28] MEDS: METOLAZONE 5 MG TAB PO SCH (10:00)
[2017-09-28] MEDS ORDERED: MULTIPLE VITAMINS W/ MINERALS TAB PO SCH (10:00)
[2017-09-28] MEDS ORDERED: POTASSIUM CHL 20MEQ/50ML 50 ML IV SCH ×2 (11:15→13:15)
[2017-09-28] MEDS ORDERED: POTASSIUM CHLORIDE 40 MEQ, LIDOCAINE 1% (LOCAL ANESTH.) 4 ML in SODIUM CHL 0.9% 100 ML IV ONE (11:30)
[2017-09-28 13:00] VITALS: BP 86/62
[2017-09-28] MEDS ORDERED: CEPH-37 PO (13:34)
[2017-09-28] MEDS ORDERED: IMBRUVICA 140 MG PO SCH (14:10)
[2017-09-28 17:00] VITALS: BP 103/76
[2017-09-29] MEDS ORDERED: IMBRUVICA 140 MG PO SCH (10:00)
== END 2017-09-28 19:30 | DRG 840 ==
LOC: TELE 23:48 → TELE-EAST 09-26 00:01
PROVIDERS: ADMIT Family Medicine; ATTEND Internal Medicine
PROC: 30233N1 Transfusion of Nonautologous Red Blood Cells into Peripheral Vein, Percutaneous Approach (ICD-10-PCS; principal; 2017-09-25)
DX: C91.10 Chronic lymphocytic leukemia of B-cell type not having achieved remission (principal); E43 Unspecified severe protein-calorie malnutrition; G93.41 Metabolic encephalopathy; L89.219 Pressure ulcer of right hip, unspecified stage; L89.153 Pressure ulcer of sacral region, stage 3; E11.22 Type 2 diabetes mellitus with diabetic chronic kidney disease; I48.91 Unspecified atrial fibrillation; N39.0 Urinary tract infection, site not specified; I13.0 Hypertensive heart and chronic kidney disease with heart failure and stage 1 through stage 4 chronic kidney disease, or unspecified chronic kidney disease; N18.4 Chronic kidney disease, stage 4 (severe); D63.0 Anemia in neoplastic disease; I50.9 Heart failure, unspecified; I71.2 Thoracic aortic aneurysm, without rupture; F03.90 Unspecified dementia, unspecified severity, without behavioral disturbance, psychotic disturbance, mood disturbance, and anxiety; E03.9 Hypothyroidism, unspecified; I25.10 Atherosclerotic heart disease of native coronary artery without angina pectoris; J44.9 Chronic obstructive pulmonary disease, unspecified; Z87.01 Personal history of pneumonia (recurrent); Z68.25 Body mass index [BMI] 25.0-25.9, adult; Z79.84 Long term (current) use of oral hypoglycemic drugs; Z92.21 Personal history of antineoplastic chemotherapy; Z79.899 Other long term (current) drug therapy
CPT/HCPCS: 36415; 71045; 80053; 81001; 82270; 82962; 85007; 85014; 85018; 85027; 86850; 86900; 86901; 86920; 87040; 87081; 93005; J1815; J2001